=== PATIENT | female | born 1945 | race Caucasian/White ===

== ENCOUNTER → 2020-12-06 | Outpatient (CLI) | payer OTHER | LOC: EXRD 11:17 | DX: N28.1 Cyst of kidney, acquired (principal) | CPT/HCPCS: 76775 ==

== ENCOUNTER → 2021-11-27 | Outpatient (CLI) | payer OTHER | LOC: KOH-I 16:01 | DX: R05.9 Cough, unspecified (principal) | CPT/HCPCS: 71046 ==

== ENCOUNTER → 2022-06-22 | Outpatient (CLI) | payer OTHER | LOC: KOH-I 10:59 | DX: M25.552 Pain in left hip (principal); M25.551 Pain in right hip; M54.9 Dorsalgia, unspecified; M51.36 Other intervertebral disc degeneration, lumbar region | CPT/HCPCS: 72100; 73522 ==

== ENCOUNTER → 2022-07-20 | Outpatient (CLI) | payer OTHER | LOC: RT 09:20 | DX: I10 Essential (primary) hypertension (principal) | CPT/HCPCS: 93005 ==